=== PATIENT | male | born 1970 | race African-American/Black ===

== ENCOUNTER 2023-12-18 12:42 | Emergency (ER) | payer BC ==
[2023-12-18] MEDS ORDERED: Azithromycin 250 MG TAB ONE (13:45)
[2023-12-18] MEDS ORDERED: cefTRIAXone (ROCEPHIN) 250 MG VIAL ONE (13:46)
[2023-12-18 14:30] LABS: Bilirubin Negative (Negative); Blood, Urine Negative (Negative); Clarity Clear (Clear); Glucose, Urine (Dipstick) Negative (Negative); Ketone, Urine Negative (Negative); Leukocyte Negative (Negative); Nitrite Negative (Negative); Protein, Urine (Dipstick) Negative (Neg-Trace); Specific Gravity, Urine 1.025 (1.005-1.030); pH, Urine 5.5 (5.0-9.0)
[2023-12-18 14:42] LABS: CAUTI Indications for Culture Dysuria,urgency,freq; Squamous Epithelial 0-3 HPF (0-3); WBC/HPF 0-3 HPF (0-3)
[2023-12-18 14:43] LABS: Urine Culture Reflex No No
[2023-12-19 01:04] LABS: Chlam.trachomatis by PCR,Urine Not Detected (NotDetected); GC N.gonorrhoeae PCR,UrineVOID Not Detected (NotDetected)
== END 2023-12-18 15:04 | disposition home or self-care (01) ==
LOC: NAV ERS 12:42
DX: N34.1 Nonspecific urethritis (principal); I10 Essential (primary) hypertension; Z87.891 Personal history of nicotine dependence; Z79.899 Other long term (current) drug therapy
CPT/HCPCS: 81001; 87491; 87591; 96372; 99283; J0696